=== PATIENT | male | born 1950 | race Caucasian/White ===

== ENCOUNTER 2021-01-02 09:08 | Outpatient (REF) | payer OTHER, SELFPAY ==
--- NOTE | ~2021-01-02 | XR_ITS ---
EXAMINATION: XR LUMBOSACRAL SPINE WITH OBLIQUES CLINICAL INFORMATION: Low back pain COMPARISON: Left hip x-ray January 2020 TECHNIQUE: 3 views of the lumbar spine FINDINGS: There is curvature of the lower lumbar spine to the right. Bone alignment is otherwise normal. No fracture or dislocation is seen. There is multilevel degenerative spondylosis and degenerative disc disease from L1-L2 to L4-L5. There is lower lumbar spine facet arthritis. There is questioned of area of increased sclerosis in the left iliac bone. This is not seen on prior left hip x-ray January 2020. There is evidence of atherosclerotic disease. XR/XR lumbar spine 2-3V IMPRESSION: Scoliosis and degenerative changes of the lumbar spine. Question increased sclerosis of the left iliac bone new from 2019 exam.
== END 2021-01-02 09:09 | disposition home or self-care (01) ==
LOC: HO.XRAY 09:08
PROVIDERS: PCP Internal Medicine; Visit Provider Nurse Practitioner Family
DX: M54.5 Low back pain (principal)
CPT/HCPCS: 72100; 72110

== ENCOUNTER → 2023-01-15 14:18 | Outpatient (BNVA) | payer BC, SELFPAY | PROVIDERS: PCP Internal Medicine; Visit Provider Neurological Surgery ==